=== PATIENT | male | born 1980 | race Caucasian/White ===

== ENCOUNTER 2024-01-09 20:44 | Emergency (ER) | payer OTHER, SELFPAY ==
[2024-01-09 20:49] VITALS: BP 149/104
[2024-01-09 21:15] LABS: % Basophils 0.2 % (0-2); % Eosinophils 1.6 % (0-6); % Immature Granulocytes 0.2 % (0-0.5); % Lymphocytes 17.8 % (20.5-51.1); % Monocytes 6.2 % (1.7-9.3); Absolute Eosinophils 0.2 10^3/uL (0-0.7); Absolute Lymphocytes 1.8 10^3/uL (1.2-3.4); Absolute Monocytes 0.6 10^3/uL (0.1-0.6); Absolute Neutrophils 7.6 10^3/uL (1.4-6.5); Hemoglobin 15.6 g/dL (13.0-18.0); Mean Corp Hgb Conc. 34.7 g/dL (33.0-37.0); Mean Corpuscular Hgb 31.2 pg (27.0-31.0); Mean Platelet Volume 10.4 fL (7.4-10.4); Nucleated Red Blood Cells % 0 % (-); Platelet Count 207 10^3/uL (130-400); White Blood Cell Count 10.3 10^3/uL (4.8-10.8)
[2024-01-09 21:34] LABS: ALT (SGPT) 29 U/L (0-50); AST (SGOT) 29 U/L (17-59); Albumin 4.2 g/dl (3.5-5.0); Alkaline Phosphatase 96 U/L (38-126); Blood Urea Nitrogen 15 mg/dl (9-20); Calcium 9.7 mg/dl (8.4-10.2); Carbon Dioxide 24 mmol/L (22-30); Chloride 106 mmol/L (98-107); Glucose 121 mg/dl (70-99); Potassium 3.8 mmol/L (3.5-5.1); Sodium 139 mmol/L (135-145); Total Bilirubin 0.6 mg/dl (0.2-1.3); Total Protein 6.9 g/dl (6.3-8.2); eGFR > 60.00
[2024-01-09 22:07] VITALS: BMI 32.5
[2024-01-09 22:09] VITALS: BP 167/94
[2024-01-09] MEDS: ANCEF 10 IV (22:15)
--- NOTE | 2024-01-09 22:29 | ED.GENMED ---
History of Present Illness
General
Chief Complaint: Skin Problem
Source: patient
Exam Limitations: none
Time Seen by Provider: 01/09/24 21:37
Travel History
Have you had any contact with someone who has COVID-19?: No
Do you have any symptoms of coronavirus? Fever > 100 degrees, chills, cough, shortness of breath, sore throat, loss of taste or smell, muscle aches, or headache?: No
History of Present Illness
History of Present Illness:
Patient fell a 60-day or pain between his third and fourth toe 3 nights ago. This was followed by intense itching. However today he noted swelling and redness. Saw his primary care who started Keflex. However his became concerned of a
cellulitis and asked him to come in for evaluation. He denies other complaints except for local pain and swelling
Past History
Past History
ED Past Medical History: None
ED Past Surgical History: None
Patient has exhibited threatening behavior?: No
PSI?: No
Social History
Tobacco: Non-smoker
Review of Systems
Review of Systems
All Other Systems: Not applicable
Constitutional: Denies fever or chills
Phy Exam
Physical Exam
Physical Exam:
General: Nontoxic appearing in no distress
Skin: Warm and dry, no rash
Neuro: Alert, nontoxic, grossly nonfocal
Psychiatric: Good eye contact and appropriate
Musculoskeletal: Area of more purplish ecchymosis between the third and fourth toe but does not extend to the tip of the toe. Good capillary refill. Areas marked. No surrounding erythema cellulitis warmth or lymphangitis to the dorsal foot. No
foreign body. No bony tenderness.
Course
Orders/Labs/Results
Orders:
Orders
01/09/24 21:08
Complete Blood Count/With Diff Urgent
Comprehensive Metabolic Panel Urgent
01/09/24 22:10
CeFAZolin 2 GRAM [Ancef] 2 grams in 10 ml IV NOW
Abnormal Lab Results
01/09/24
21:08
MCH 31.2 H pg
(27.0-31.0)
Absolute Neuts (auto) 7.6 H 10^3/uL
(1.4-6.5)
Lymphocytes % 17.8 L %
(20.5-51.1)
Glucose 121 H mg/dl
(70-99)
01/09/24 21:08
01/09/24 21:08
Vital Signs
Initial and Last Documented VS:
Initial Vital Signs
Temp Pulse Resp BP Pulse Ox
98.7 F 106 20 149/104 98
01/09/24 20:49 01/09/24 20:49 01/09/24 20:49 01/09/24 20:49 01/09/24 20:49
Last Documented Vital Signs
Temp Pulse Resp BP Pulse Ox
98.7 F 106 20 167/94 96
01/09/24 20:49 01/09/24 20:49 01/09/24 20:49 01/09/24 22:09 01/09/24 22:09
*Critical Care Note
Total Time (30-74mins, 75-104mins- exclusive of procedures): Not Applicable
Update Note
Update Note:
Area marked appears more ecchymotic than cellulitic. However underlying this there could be a slight cellulitic component. Therefore we will give an IV dose of antibiotics and close follow-up.
ED Attending Note
-
Portions of this chart may have been created with voice recognition software.� Occasional wrong word or��sound alike� substitutions may have occurred due to the inherent limitations of voice recognition software.
Discharge Plan
Departure
Patient Disposition: Home (Routine Discharge)
Date of Disposition: 01/09/24
Time of Disposition: 22:27
Patient with high blood pressure during this ER visit?: Yes
Discharge Problem:
Left foot rash, Cellulitis versus insect bite
Instructions: Skin Rash (DC), Cellulitis (Skin Infection), Adult (DC), BLOOD PRESSURE
Prescriptions:
No Action
acetaminophen 325 MG tablet
650 mg PO Q4HPRN PRN (Reason: mild pain) Qty: 1 0RF
polyethylene glycol 3350 17 GRAMS powder in packet
17 grams PO DAILYPRN PRN (Reason: constipation) Qty: 1 0RF
ibuprofen 200 MG tablet
400 - 600 mg PO Q6HPRN PRN (Reason: moderate pain) Qty: 1 0RF
oxycodone 5 MG tablet
5 - 10 mg PO Q4HPRN PRN (Reason: breakthrough/severe pain) Qty: 25 0RF
oxycodone-acetaminophen 5-325 mg tablet
1 tab PO Q8H PRN (Reason: pain) Qty: 10 0RF
Referrals:
Lacy Kumar NP [Family Provider] -
Activity Restrictions/Additional Instructions:
Continue Keflex
As we discussed, I am here tomorrow night starting at 7 PM and would be happy to recheck it. If you do come back, do not sign in as we discussed
Close follow-up with your primary physician return immediately with increased or spreading redness swelling fever chills or any other concerning symptoms
Interventions
Interventions:
*Risk Screen - Suicide Last Done: 01/09/24 20:49
*General Assessment Last Done: 01/09/24 20:49
*Neglect/Abuse Screening Last Done: 01/09/24 20:49
ED- Fall Risk Assessment Last Done: 01/09/24 20:49
*ED COVID-19 Vaccine History Last Done: 01/09/24 20:49
*Nursing Disposition Last Done: 01/09/24 22:43
ED-Skin Assessment Last Done: 01/09/24 22:09
Discharge Date and Time
Print Language: HEBREW
== END 2024-01-09 22:44 | disposition home or self-care (01) ==
LOC: EMR 20:44
PROVIDERS: EMERGENCY PHYSICIAN Emergency Medicine; FAMILY PHYSICIAN Internal Medicine
DX: R21 Rash and other nonspecific skin eruption (principal); R03.0 Elevated blood-pressure reading, without diagnosis of hypertension
CPT/HCPCS: 99284; 96374; 80053; 85025

== ENCOUNTER 2024-01-10 20:25 | Inpatient (IN) | payer OTHER, SELFPAY ==
[2024-01-10 19:15] VITALS: BP 153/91
--- NOTE | 2024-01-10 19:18 | ED.GENMED ---
History of Present Illness
General
Chief Complaint: Skin Problem
Source: patient
Exam Limitations: none
Time Seen by Provider: 01/10/24 19:15
History of Present Illness
History of Present Illness:
Patient returns for reevaluation. Feels it is somewhat worse. Increased pain increased swelling. Some low-grade fever.
Past History
Past History
ED Past Medical History: None
ED Past Surgical History: None
Patient has exhibited threatening behavior?: No
PSI?: No
Social History
Tobacco: Non-smoker
Review of Systems
Review of Systems
All Other Systems: Not applicable
Constitutional: Reports fever
Phy Exam
Physical Exam
Physical Exam:
GENERAL: Alert and oriented in no apparent distress
CARDIAC: Regular rate and rhythm
LUNGS: No respiratory distress
NEUROLOGICAL: Alert and oriented , grossly non-focal
SKIN: Warm and dry, increased ecchymosis and some erythema extending to the dorsal foot with increased swelling. Blister appearance to the dorsal toe.
MUSCULOSKELETAL: Mild swelling of the dorsal left foot with swelling of the left fourth toe
PSYCH: Normal and appropriate interaction.
Course
Orders/Labs/Results
Orders:
Orders
01/10/24 Lunch
Regular
At Your Request: Full Participation
01/10/24 19:16
IV Insert/Care/Rem.- Treatment PRN
Piperacillin/Tazo 4.5 Gram [Zosyn] 4.5 gram in 100 ml IV NOW
01/10/24 19:20
0.9% Sodium Chloride 1000 ml [Nss] 1,000 ml IV BOLUS
01/10/24 19:24
Acetaminophen [Tylenol] 1,000 mg PO NOW STA
01/10/24 19:33
Basic Metabolic Panel Urgent
Complete Blood Count/With Diff Urgent
Blood Culture Q30M
MELISSA Source: Blood/Venous
Specimen Description:
Wound Culture [Wound/Abscess/Other Culture] Urgent
MELISSA Source: Skin Surface
Specimen Description:
Date Specimen was Collected: 01/10/24
Time Specimen was Collected: 19:20
01/10/24 19:37
Lactate Level [Lactic Acid] Q4H
01/10/24 19:39
Admit/Transfer Patient As Directed
Co-Sign Provider:
Level of Care: Inpatient admission
Assign to:: Medical/Surgical
Physician / Group: Hayden ramachandran
Diagnosis: L foot cellulitis
Reason for Hospitalization: L foot cellulitis - IV Abx
Expected length of stay greater than two midnights?: Yes
ELOS- Estimated Length of Stay in days: 2
I certify the patient meets the requirements for IP care: Yes
01/10/24 19:40
Code Status As Directed
Resuscitation Status: Full Code
01/10/24 19:55
Blood Culture Q30M
MELISSA Source: Blood/Venous
Specimen Description:
01/10/24 19:56
0.9% Sodium Chloride 1000 ml [Nss] 1,500 ml IV NOW STA
01/10/24 20:04
Vancomycin [Vancocin] 2,000 mg 0.9% Sodium Chloride 500 ml [Nss] 500 ml IV NOW
01/10/24 20:10
Foot, Left 3 View [CR Foot - Left Min 3 Views] Urgent
Comment:
Reason For Exam: evaluate for fb
01/10/24 21:04
Acetaminophen [Tylenol] 650 mg PO Q4HPRN PRN
Bisacodyl [Dulcolax] 10 mg RECTAL [id number] PRN
Docusate W/Senna [Senokot-S] 1 tablet PO BIDPRN PRN
Heparin 5,000 units SC Q12
Nicotine [Nicoderm Transdermal] 14 mg TRANSDERM DAILY
Ondansetron Injectable [Zofran] 4 mg IV Q6HPRN PRN
Polyethylene Glycol Powder [Miralax] 17 grams PO DAILYPRN PRN
VANCOMYCIN Pharmacy to Dose [VANCOCIN Pharmacy to Dose] 1 each Pharmacy To Prepare [Call Pharmacy To Prepare] 0 ml IV PER PROTOCOL
01/10/24 21:04
Activity As Directed
Activity Level: As Tolerated
Elevate Extremity As Directed
Extremity:: Left foot
Elevate with:: pillows
Frequency: At all times
Vital Signs As Directed
Frequency: Per unit guidelines
DX Deep Vein Thrombosis Video Routine
01/10/24 21:38
MRSA Screen Routine
MELISSA Source: Nose
Specimen Description:
01/10/24 23:45
Lactate Level [Lactic Acid] Q4H
01/11/24 02:00
CeFAZolin 1 GRAM [Ancef] 1 gram in 5 ml IV Q8H
01/11/24 06:00
Basic Metabolic Panel IN AM
Complete Blood Count/With Diff IN AM
Abnormal Lab Results
01/10/24 01/10/24
19:33 19:37
MCH 31.3 H pg
(27.0-31.0)
MPV 10.7 H fL
(7.4-10.4)
Absolute Lymphs (auto) 0.9 L 10^3/uL
(1.2-3.4)
Neutrophils % 77.5 H %
(42.2-75.2)
Lymphocytes % 13.8 L %
(20.5-51.1)
Carbon Dioxide 21 L mmol/L
(22-30)
Glucose 148 H mg/dl
(70-99)
Lactic Acid 2.1 H mmol/L
(0.7-2.0)
01/10/24 19:33
01/10/24 19:33
Vital Signs
Initial and Last Documented VS:
Initial Vital Signs
Temp Pulse Resp BP Pulse Ox
100.0 F 135 16 153/91 97
01/10/24 19:15 01/10/24 19:15 01/10/24 19:15 01/10/24 19:15 01/10/24 19:15
Last Documented Vital Signs
Temp Pulse Resp BP Pulse Ox
98.7 F 87 18 135/75 97
01/10/24 23:46 01/10/24 23:46 01/10/24 23:46 01/10/24 23:46 01/10/24 23:46
*Critical Care Note
Total Time (30-74mins, 75-104mins- exclusive of procedures): Not Applicable
Update Note
Update Note:
Some progression of symptoms with now blistering noted. I will unroofed this sent for culture. Patient warrants inpatient IV antibiotics. Discussed with patient
Area was sterilely unroofed. Fluid is clear. Indurated tissue. Culture sent.
ED Attending Note
-
Portions of this chart may have been created with voice recognition software.� Occasional wrong word or��sound alike� substitutions may have occurred due to the inherent limitations of voice recognition software.
Discharge Plan
Departure
Patient Disposition: Admit
Date of Disposition: 01/10/24
Time of Disposition: 19:32
Presentation/result/management discussed w/ accepting MD/DO: Hospitalist
Discharge Problem:
Cellulitis left foot
Interventions
Interventions:
*Risk Screen - Suicide Last Done: 01/10/24 19:31
*General Assessment Last Done: 01/10/24 19:31
*Neglect/Abuse Screening Last Done: 01/10/24 19:31
*Nursing Disposition Last Done: 01/10/24 20:57
ED-Skin Assessment Last Done: 01/10/24 19:31
Discharge Date and Time
Discharge Date/Time: 01/10/24 20:58
[2024-01-10 19:31] VITALS: BMI 33.1
--- NOTE | 2024-01-10 19:32 | HPS.HSE ---
Family Physician
-
Family Physician:
Chief Complaint
-
skin problem
History of Present Illness
43 y/o M, no prior PMH, presents to ER with L foot swelling/redness. Patient reports 2 days ago a severe itch between his 3rd and 4th toes. He scatched and noticed a bit of redness. Yesterday he started to note some bruising like dark appearance
which progressed throughout the day. He ailyn a marker around the area and presented to the ED. He was diagnosed with cellulitis and given Ancef, then Keflex for home. Today he reports that the area is more painful and also the bruising is spreading
past the borders. Additionally he noted swelling/redness of the forefoot dorsally. Also with mild temp this evening in ER.
in ER, his lesion was lanced at bedside, clear drainage and cultured.
Patient being admitted for progressive cellulitis.
Medical History
Past Medical History
Past Medical History: Reports None
Past Surgical History: Reports None
Social History
Tobacco: Smoker
Alcohol: Occasional
Drug: None
Personal:
Living: With Family
Employment: Employed
Family History
Family History: Not pertinent
Allergies / Home Medications
Allergies reflects when Allergies were last updated in [facility].
Home Medications with original date entered in [facility]
Allergy/Medication List:
Allergies
Allergy/AdvReac Type Severity Reaction Status Date / Time
No Known Allergies Allergy Unverified 01/10/24 19:20
Home Medications
cephalexin 500 mg tablet 500 mg PO QID 01/10/24
famotidine 20 mg tablet (Pepcid) 20 mg PO DAILY PRN heartburn/indigestion 01/10/24
naproxen sodium 220 mg tablet (Aleve) 440 mg PO BID PRN fever/swelling 01/10/24
Review of Systems
-
A 12 point ROS was completed and negative except as noted: Yes
Physical Exam
Vital Signs
Vital Signs
Temp Pulse Resp BP Pulse Ox
100.0 F 135 16 153/91 97
01/10/24 19:15 01/10/24 19:15 01/10/24 19:15 01/10/24 19:15 01/10/24 19:15
Physical Exam
General: No Apparent Distress
HEENT: NormoCephalic and Anicteric
Respiratory: Clear; No Wheezes or Rales
Cardiac: S1/S2 and Regular Rhythm
Musculoskeletal: Other (L foot, 3/4 toe interspace and toes with bruising, underlying erythema. clear drainage. L dorsal foot erythema/edema)
Neuro: AO x 3
Hematologic/Lymphatic: No Lymphadenopathy
Psych: Calm
Impression/Plan
-
Assessment:
L Foot cellulitis
- with 1st episode being itching, this could be a bug/spider bite with secondary cellulitis/bruising
- s/p lancing in ER, clear fluid expressed
- follow blood and wound cultures
- continue Vancomycin, add Ancef
- elevate L Foot to help edema
Chronic smoker (3-5 cigs/daily)
- Nicotine patch
DVT ppx: SC heparin
Code: Full
[2024-01-10 19:43] LABS: % Basophils 0.3 % (0-2); % Eosinophils 0.9 % (0-6); % Immature Granulocytes 0.3 % (0-0.5); % Lymphocytes 13.8 % (20.5-51.1); % Monocytes 7.2 % (1.7-9.3); % Neutrophils 77.5 % (42.2-75.2); Absolute Eosinophils 0.1 10^3/uL (0-0.7); Absolute Lymphocytes 0.9 10^3/uL (1.2-3.4); Absolute Monocytes 0.5 10^3/uL (0.1-0.6); Hematocrit 43.2 % (39.0-52.0); Hemoglobin 15.6 g/dL (13.0-18.0); Mean Corp Hgb Conc. 36.1 g/dL (33.0-37.0); Mean Corpuscular Hgb 31.3 pg (27.0-31.0); Mean Corpuscular Volume 86.7 fL (80.0-94.0); Mean Platelet Volume 10.7 fL (7.4-10.4); Nucleated Red Blood Cells % 0 % (-); Platelet Count 198 10^3/uL (130-400); Red Blood Cell Count 4.98 10^6/uL (4.70-6.10); White Blood Cell Count 6.4 10^3/uL (4.8-10.8)
[2024-01-10] MEDS: TYLENOL 1000 MG PO (19:47)
[2024-01-10 19:53] LABS: Lactic Acid 2.1 mmol/L (0.7-2.0)
[2024-01-10] MEDS: ZOSYN 100 IV (19:57)
[2024-01-10] MEDS: NSS 1500 ML IV (20:01)
[2024-01-10 20:02] LABS: Blood Urea Nitrogen 13 mg/dl (9-20); Calcium 9.5 mg/dl (8.4-10.2); Carbon Dioxide 21 mmol/L (22-30); Chloride 104 mmol/L (98-107); Estimated Creatinine Clearance > 125 ml/min; Glucose 148 mg/dl (70-99); Potassium 3.9 mmol/L (3.5-5.1); Sodium 136 mmol/L (135-145); eGFR > 60.00
[2024-01-10] MEDS: VANCOCIN 540 MG IV (20:36)
[2024-01-10 21:15] VITALS: BP 140/83; BMI 33.2
[2024-01-10 23:46] VITALS: BP 135/75
[2024-01-11 00:42] LABS: Lactic Acid 1.2 mmol/L (0.7-2.0)
[2024-01-11] MEDS: ANCEF 5 IV ×2 (02:26→09:31)
[2024-01-11 05:41] LABS: % Immature Granulocytes 0.2 % (0-0.5); % Lymphocytes 19.8 % (20.5-51.1); % Monocytes 9.4 % (1.7-9.3); % Neutrophils 68.6 % (42.2-75.2); Absolute Eosinophils 0.1 10^3/uL (0-0.7); Absolute Lymphocytes 0.8 10^3/uL (1.2-3.4); Absolute Monocytes 0.4 10^3/uL (0.1-0.6); Absolute Neutrophils 2.8 10^3/uL (1.4-6.5); Hematocrit 43.6 % (39.0-52.0); Hemoglobin 14.5 g/dL (13.0-18.0); Mean Corp Hgb Conc. 33.3 g/dL (33.0-37.0); Mean Corpuscular Hgb 30.5 pg (27.0-31.0); Mean Corpuscular Volume 91.6 fL (80.0-94.0); Mean Platelet Volume 10.5 fL (7.4-10.4); Nucleated Red Blood Cells % 0 % (-); Platelet Count 164 10^3/uL (130-400); Red Blood Cell Count 4.76 10^6/uL (4.70-6.10); Red Cell Dist. Width 12.8 % (11.5-14.5); White Blood Cell Count 4.1 10^3/uL (4.8-10.8)
[2024-01-11 06:29] LABS: Blood Urea Nitrogen 10 mg/dl (9-20); Calcium 8.8 mg/dl (8.4-10.2); Carbon Dioxide 24 mmol/L (22-30); Chloride 110 mmol/L (98-107); Estimated Creatinine Clearance > 125 ml/min; Glucose 105 mg/dl (70-99); Potassium 4.7 mmol/L (3.5-5.1); Sodium 138 mmol/L (135-145); eGFR > 60.00
[2024-01-11 07:40] VITALS: BP 121/95
--- NOTE | 2024-01-11 08:06 | PHA.VAN.IN ---
Assessment
- Assessment
Renal Function: Appears similar to baseline
Concomitant Antimicrobials: cefazolin
AUC Dosing Plan
- Dosing Variables
Dosing Weight (kg): 117
Dosing CrCl (ml/min): 125
Vd coefficient (L/kg): 0.7
- Empiric Dosing
Initial / Loading Dose: 2000mg - 01/09 20:36
Maintenance Regimen: Vanc 1750mg Q12H - first dose now then 1800
Estimated AUC (mcg*h/mL): 438
Estimated Peak (mcg*h/mL): 29.4
Estimated Trough (mcg/ml): 10
Estimated Half Life (H): 6.4
- Monitoring
No levels ordered at this time: consider levels in next few days
Pharmacokinetics Vancomycin I
- -
Patient Age: 43
Patient Sex: Male
Vancomycin Day #: 1
Indication: Skin And Soft Tissue
Requesting Provider: Dr. Monte
Pertinent Antimicrobial Allergies:
NKDA
Height / Weight:
Height 6 ft 2 in
Actual Weight 117.254 kg
Pertinent Past Medical History: BMI ~33
- Vital Signs / Lab Results
Temp Pulse Resp BP Pulse Ox
97.6 F 72 17 121/95 96
01/11/24 07:40 01/11/24 07:40 01/11/24 07:40 01/11/24 07:40 01/11/24 07:40
Lab Results - Hematology
01/10/24 01/11/24
19:33 05:14
WBC 6.4 4.1 L
Lab Results - Chemistry
01/10/24 01/11/24
19:33 05:14
BUN 13 10
Creatinine 0.9 0.8
Estimated Creat Clear > 125 > 125
01/10/24 01/11/24
19:37 00:18
Lactic Acid 2.1 H 1.2
Microbiology Results
01/10/24 19:33 Gram Stain - Preliminary
Skin Surface
[2024-01-11] MEDS: VANCOCIN 535 MG IV ×2 (09:31→18:25)
--- NOTE | 2024-01-11 10:42 | CM ---
Met with pt and his at bedside
Pt lives in a 2 story home with his and 3 children
Self-employed, independent, driving
DME - crutches
SNF/HH - denies past hx. Has had outpatient PT in past
Has ride at d/c
PCP - Dr Bryanna Wellington
CM will follow for needs at d/c
Plan - anticipate home no needs
--- NOTE | 2024-01-11 12:22 | W.PN.HOSP.TC ---
Today's Communication/Plan
-
IV abx
ID eval
wound care
await culture data
mrsa pending
Assessment / Plan
Assessment / Plan
L Foot cellulitis
Lactic acidosis resolved with IVF
- with 1st episode being itching, this could be a bug/spider bite with secondary cellulitis/bruising
- s/p lancing in ER, clear fluid expressed
- follow blood and wound cultures
- continue Vancomycin, add Ancef
- elevate L Foot to help edema
- Wound care and ID eval
Chronic smoker (3-5 cigs/daily)
- Nicotine patch
DVT ppx: SC lovenox
Code: Full
Anticipated Discharge: 24 - 48 hours
Subjective/Interval History
-
Date of Service: January 11, 2024
States of left foot/toe pain upon removal of dressing
States mild worsening of erythema as it has passed marker site
states of left foot swelling
Objective Data
-
Labs:
Laboratory Results
01/11/24
05:14
WBC 4.1 L
Hgb 14.5
Hct 43.6
Plt Count 164
Sodium 138
Potassium 4.7
Chloride 110 H
Carbon Dioxide 24
BUN 10
Creatinine 0.8
Glucose 105 H
Calcium 8.8
Vital Signs:
Vital Signs
Temp Pulse Resp BP Pulse Ox
97.6 F 72 17 121/95 96
01/11/24 07:40 01/11/24 07:40 01/11/24 07:40 01/11/24 07:40 01/11/24 07:40
I&O
01/10/24 01/11/24 01/12/24
06:59 06:59 06:59
Intake Total 480 / 480
Balance 480 / 480
Physical Exam
-
General: Well Developed and No Apparent Distress
HEENT: Normocephalic, Atraumatic and Moist Mucous Membranes
Respiratory: Clear to Auscultation
Cardiac: Regular Rhythm and S1/S2; Negative Murmur, Rub or Gallop
GI: Soft, Nontender, Nondistended and Normal Bowel Sounds; Negative Organomegaly
Rectal: Deferred by Provider
Musculoskeletal: No Clubbing, No Cyanosis and No Edema
Skin: Rash (Left 4/5 toes with erythema. no zonia pus noted from mild open skin wound. Left foot swelling. )
Neuro: Awake, AO x 3, No Motor Deficits and Nonfocal/Grossly Intact
Psych: Calm
--- NOTE | 2024-01-11 13:37 | WOUNDNOTE ---
LEFT 4th TOE/ Foot
--- NOTE | 2024-01-11 13:47 | WOUNDNOTE ---
[facility] RN note: Patient admitted with Left foot cellulitis
See H&P for complete history.
PMH:
Wound Location and type/assessment: Patient admitted with left foot cellulitis, possibly related to insect bite. The cellulitic area is ecchymotic with open area on 4th toe. Minimal drainage. Patient reports tenderness with ambulation. Heels and
sacrum intact.
Appetite: Good
Pressure redistribution devices in place: Versa Care with Accumax. Patient turns, ambulates without assistance.
Plan: Xeroform and clean dry dressing applied. Patient given instructions for home self care. [facility] phone number added to discharge in the case patient wants to follow up if wound worsens or changes. Will confirm orders with hospitalist and update
nurse.
Updated care plan and will follow as needed.
--- NOTE | 2024-01-11 14:20 | CON.ID ---
Consultation
-
Date/Time Consultation Requested: 03/12/2024 08:53
Date/Time Consultation Performed: 03/12/2024 1350
Requesting Provider: Dr. Yeboah
Performing Provider: Dr. Muniz
Reason for Consultation: Left fourth toe infection
Chief Complaint / Past History
History of Present Illness
Ruddy Fink is a 43-year-old man being evaluated at the request of Dr. Yeboah in regards to a left fourth toe infection. History is obtained from chart review, along with patient interview.
The patient reports that 5 days ago he was out with his family to eat and then they had ice cream later in the evening. He reports that while standing in line his left foot became pruritic and he scratched it. He recalls that it seemed to require
a little bit more than the usual scratch to relieve the pruritus. The next day he played golf and was outside the pool and his foot was fine. 3 days ago the area became again pruritic and began to have some swelling. 2 days ago the area became
more red. He saw his PCP and was prescribed Keflex. He was advised that if there was any worsening of the area to come to the ER. He noted that there was some increase in the erythema and he came in. Here he received antibiotics and was
discharged. He was advised that if there is any worsening to come back, and yesterday he noted the area turned darker red, and to some degree purpleish and he presented back to the ER and was admitted. Thus far, he has received cefazolin and
vancomycin. He did also receive a dose of Zosyn.
At this time he notes ongoing discomfort in the base of the fourth toe. It is tender to touch. The area of purple/red has not progressed, though, for the past 24 hours or so. He does recall that he had some prior fevers, but denies any chills.
He notes no fresh water, brackish water or salt water exposure. No history of prior trauma to the area.
Past History
Past Medical History: None
Additional Past Surgical History:
Hernia
Right knee surgery
Allergy History:
No Known Allergies Allergy (Unverified 01/10/24 19:20)
Medications Reviewed: Yes
Current Antibiotics:
Cefazolin and vancomycin
Social History
Tobacco: Non-Smoker
Alcohol: Occasional
Personal:
Living: With Family
Employment: Employed
Family History
Family History: Not Pertinent
Review of Systems
Vital Signs
Temp Pulse Resp BP Pulse Ox
97.6 F 72 17 121/95 96
01/11/24 07:40 01/11/24 07:40 01/11/24 07:40 01/11/24 07:40 01/11/24 07:40
Physical Exam
Physical Exam
Constitutional: No Acute Distress, Comfortable and Non-toxic
Eyes: Pupils Equal, Pupils Round, No Conjunctival Hemorrhage and Sclera Anicteric
Oral: No Thrush and No Ulcers
Cardiovascular: S1/S2; Negative S3/S4
Pulmonary: Clear, Symmetric and Non Labored; Negative Wheezes, Rales or Rhonchi
Gastrointestinal: Soft, Non Tender, Non Distended, Normal Bowel Sounds, No Rebound and No Guarding
Extremities: Edema, Erythema and Other (Right fourth toe with edema and reddish-purple coloration. Area of sharp demarcation approximately 1 cm onto foot.)
Skin: Warm and Dry
Neurological: Awake and Alert
Psychological: Calm
.
Lab / Diagnostic Study Results
01/11/24 05:14
01/11/24 05:14
Abs Immat Gran (auto) 0.0 10^3/uL (0-0.05) 01/11/24 05:14
Absolute Neuts (auto) 2.8 10^3/uL (1.4-6.5) 01/11/24 05:14
Absolute Lymphs (auto) 0.8 10^3/uL (1.2-3.4) L 01/11/24 05:14
Absolute Monos (auto) 0.4 10^3/uL (0.1-0.6) 01/11/24 05:14
Absolute Basos (auto) 0.0 10^3/uL (0-0.2) 01/11/24 05:14
Immature Gran % 0.2 % (0-0.5) 01/11/24 05:14
Neutrophils % 68.6 % (42.2-75.2) 01/11/24 05:14
Lymphocytes % 19.8 % (20.5-51.1) L 01/11/24 05:14
Monocytes % 9.4 % (1.7-9.3) H 01/11/24 05:14
Eosinophils % 2.0 % (0-6) 01/11/24 05:14
Basophils % 0.0 % (0-2) 01/11/24 05:14
Lactic Acid 1.2 mmol/L (0.7-2.0) 01/11/24 00:18
Microbiology Results
Micro:
01/10/24 19:33 Wound Culture - Preliminary
Skin Surface No growth
Gram Stain - Preliminary
01/10/24 21:38 MRSA Screen - Pending
Nose
01/10/24 19:55 Blood Culture - Pending
Blood/Venous
01/10/24 19:33 Blood Culture - Pending
Blood/Venous
Assessment / Plan
Left fourth toe infection
Suspected arthropod envenomation
Recommendations:
The sharp line of demarcation on the foot is suggestive of a insect envenomation (?spider ?bee ?other) with suspected concomitant cellulitis.
Continue with empiric antibiotics for the present. Will change back to Zosyn for broader gram-negative coverage. Continue with vancomycin.
Continue lower extremity elevation.
Consider Podiatry evaluation.
Will closely follow. If ongoing swelling and discomfort tomorrow, will consider MRI to assess for any developing collection.
Monitor white count and temperature curve.
Care Review
Plan reviewed with: Physician (Hospitalist)
[2024-01-11] MEDS: ZOSYN 50 IV ×2 (15:52→21:47)
[2024-01-11 16:26] VITALS: BP 133/82
[2024-01-11 23:14] VITALS: BP 133/74
[2024-01-12] MEDS: ZOSYN 50 IV ×2 (03:49→11:36)
[2024-01-12 05:39] LABS: % Basophils 0.7 % (0-2); % Eosinophils 3.8 % (0-6); % Lymphocytes 32.6 % (20.5-51.1); % Monocytes 14.7 % (1.7-9.3); % Neutrophils 48.2 % (42.2-75.2); Absolute Eosinophils 0.2 10^3/uL (0-0.7); Absolute Lymphocytes 1.4 10^3/uL (1.2-3.4); Absolute Monocytes 0.6 10^3/uL (0.1-0.6); Hematocrit 43.4 % (39.0-52.0); Hemoglobin 14.7 g/dL (13.0-18.0); Mean Corp Hgb Conc. 33.9 g/dL (33.0-37.0); Mean Corpuscular Hgb 30.9 pg (27.0-31.0); Mean Corpuscular Volume 91.2 fL (80.0-94.0); Mean Platelet Volume 10.6 fL (7.4-10.4); Nucleated Red Blood Cells % 0 % (-); Platelet Count 167 10^3/uL (130-400); Red Blood Cell Count 4.76 10^6/uL (4.70-6.10); Red Cell Dist. Width 12.8 % (11.5-14.5); White Blood Cell Count 4.2 10^3/uL (4.8-10.8)
[2024-01-12 06:02] LABS: Blood Urea Nitrogen 11 mg/dl (9-20); Calcium 8.7 mg/dl (8.4-10.2); Carbon Dioxide 24 mmol/L (22-30); Chloride 107 mmol/L (98-107); Estimated Creatinine Clearance > 125 ml/min; Glucose 107 mg/dl (70-99); Potassium 4.4 mmol/L (3.5-5.1); Sodium 139 mmol/L (135-145); eGFR > 60.00
[2024-01-12] MEDS: VANCOCIN 535 MG IV (06:03)
--- NOTE | 2024-01-12 06:43 | VATNOTE ---
CALLED TO ASSESS CURRENT IV ACCESS IN RAC. FLUSHED WELL, HAS A GOOD BR, APPEARS WNL AND PT HAS N/C. POSITIONAL DDURING IV ABX ADMINISTRATION. PT DECLINES A NEW IV ACCESS AT THIS TIME. PCN AWARE. VAT TO FOLLOW. ABX INFUSING WELL AT THIS TIME.
--- NOTE | 2024-01-12 07:25 | W.CS.POD ---
Consult Summary - Podiatry
-
Pt seen bedside for pain and swelling of left foot and specifically the 3rd interspace for 5 days . x-ray negative for foreign body, wound culture negative. If no improvement today would agree with ordering MRI to rule out a deep abscess. He
does not feel much relief from pain with the IV abx however the swelling is down. Agree it is most likely insect bite.
I would consider steroids to reduce inflammation. Will follow Consult dictated
[2024-01-12 07:36] VITALS: BP 139/85
--- NOTE | 2024-01-12 10:27 | PHA.VAN.FU ---
Vancomycin Assessment / Plan
- Assessment
Renal Function: Stable
WBC's are: Stable
In the past 24 hrs, patient has been: Afebrile
Concomitant Antimicrobials: piperacillin/tazobactam
- Dosing Plan
Continue: Vanc 1750mg Q12H
- Monitoring Plan
No level(s) ordered at this time: consider in next few days
- Follow Up
Pharmacy will continue to follow.
Vancomycin Follow UP
- -
Patient Age: 43
Patient Sex: Male
Vancomycin Day #: 2
Indication: Skin And Soft Tissue
Requesting Provider: Dr. Monte / Cristy
Pertinent Antimicrobial Allergies:
NKDA
Height / Weight:
Height 6 ft 2 in
Actual Weight 117.254 kg
Pertinent Past Medical History: BMI ~33
- Vital Signs / Lab Results
Temp Pulse Resp BP Pulse Ox
98.1 F 67 17 139/85 97
01/12/24 07:36 01/12/24 07:36 01/12/24 07:36 01/12/24 07:36 01/12/24 07:36
Lab Results - Hematology
01/10/24 01/11/24 01/12/24
19:33 05:14 05:17
WBC 6.4 4.1 L 4.2 L
Lab Results - Chemistry
01/10/24 01/11/24 01/12/24
19:33 05:14 05:17
BUN 13 10 11
Creatinine 0.9 0.8 0.9
Estimated Creat Clear > 125 > 125 > 125
01/10/24 01/11/24
19:37 00:18
Lactic Acid 2.1 H 1.2
Microbiology Results
01/10/24 21:38 MRSA Screen - Preliminary
Nose Culture in Progress
01/10/24 19:55 Blood Culture - Preliminary
Blood/Venous No Growth in 24 hours- Final report to follow
01/10/24 19:33 Blood Culture - Preliminary
Blood/Venous No Growth in 24 hours- Final report to follow
01/10/24 19:33 Wound Culture - Preliminary
Skin Surface No growth
Gram Stain - Preliminary
--- NOTE | 2024-01-12 10:46 | W.PN.HOSP.TC ---
Addendum entered and electronically signed by Mir Yeboah MD 01/12/24 15:09:
MRI negative for acute osteomyelitis/abscess/tenosynovitis. Discussed with infectious disease. Patient wants to go home. Okay for discharge with p.o. Doxy for 7 days. Discussed with patient who verbalized understanding and need to follow-up as
outpatient with podiatry.
More than 30 minutes spent in discharge including
Final examination of the patient
Summarizing hospital stay
Instructions for continuing care to all relevant caregivers
Preparation of discharge records, prescriptions, and referral forms
Total time spent (in minutes): 45
Original Note:
Today's Communication/Plan
-
IV broad spectrum abx
update Tdap
ID recs
Elevated LLE
Assessment / Plan
Assessment / Plan
L Foot cellulitis
Lactic acidosis resolved with IVF
- with 1st episode being itching, this could be a bug/spider bite with secondary cellulitis/bruising
- s/p lancing in ER, clear fluid expressed
- Blood cultures negative for growth x 24 hours. Wound culture with no growth.
- continue Vancomycin,and zosyn
- elevate L Foot to help edema
- Wound care and ID eval
- Pt does not remember last Tetanus shot. Will order
- If no improvement LLE MRI
- Podiatry consultation
Chronic smoker (3-5 cigs/daily)
- Nicotine patch
DVT ppx: SC lovenox
Code: Full
Anticipated Discharge: > 48 hours
Subjective/Interval History
-
Date of Service: January 12, 2024
States some mild improvement in swelling and Erythema
Objective Data
-
Labs:
Laboratory Results
01/12/24
05:17
WBC 4.2 L
Hgb 14.7
Hct 43.4
Plt Count 167
Sodium 139
Potassium 4.4
Chloride 107
Carbon Dioxide 24
BUN 11
Creatinine 0.9
Glucose 107 H
Calcium 8.7
Vital Signs:
Vital Signs
Temp Pulse Resp BP Pulse Ox
98.1 F 67 17 139/85 97
01/12/24 07:36 01/12/24 07:36 01/12/24 07:36 01/12/24 07:36 01/12/24 07:36
I&O
01/11/24 01/12/24 01/13/24
06:59 06:59 06:59
Intake Total 480 / 480 660 / 660
Balance 480 / 480 660 / 660
Physical Exam
-
General: Well Developed and No Apparent Distress
HEENT: Normocephalic, Atraumatic and Moist Mucous Membranes
Respiratory: Clear to Auscultation
Cardiac: Regular Rhythm and S1/S2; Negative Murmur, Rub or Gallop
GI: Soft, Nontender, Nondistended and Normal Bowel Sounds; Negative Organomegaly
Rectal: Deferred by Provider
Musculoskeletal: No Clubbing, No Cyanosis and No Edema
Skin: Rash (Left 4th toe with erythema. no zonia pus noted from mild open skin wound. Left foot swelling-improved )
Neuro: Awake, AO x 3, No Motor Deficits and Nonfocal/Grossly Intact
Psych: Calm
[2024-01-12] MEDS: ADACEL 0.5 ML IM (11:37)
--- NOTE | 2024-01-12 12:31 | W.PN.ID1 ---
Date of Service
Date of Service: January 12, 2024
Today's Communication
See below...
Assessment / Plan
Left fourth toe infection
Suspected arthropod envenomation
Recommendations:
The sharp line of demarcation on the foot is suggestive of a insect envenomation (?spider ?bee ?other) with suspected concomitant cellulitis. At present, this area appears stable and without significant twisting frame changer the past 24 hours.
Continue current abx for right now.
Check MRI of area to assure no abscess.
- if no abscess, transition to oral doxycycline.
Will likely need follow-up with Wound Care Center or Podiatry following D/C
����������������������������������������������������������
Chief Complaint
-: Other (right 4th toe cellulitis)
Subjective / Review of Systems
Review of Systems: No Fever and No Chills
Vital Signs / Physical Exam
Vital Signs
Vital Signs
Temp Pulse Resp BP Pulse Ox
98.1 F 67 17 139/85 97
01/12/24 07:36 01/12/24 07:36 01/12/24 07:36 01/12/24 07:36 01/12/24 07:36
Physical Exam
Constitutional: No Acute Distress, Comfortable and Non-toxic
Eyes: Sclera Anicteric
Pulmonary: Non Labored
Skin: Other (right 4th toe area with ongoing, but stable purple discoloration.)
Neurological: Awake and Alert
Psychological: Calm
Objective Data
Lab Data
Lab Results
01/12/24 05:17
01/12/24 05:17
Estimated Creat Clear > 125 ml/min 01/12/24 05:17
Lactic Acid 1.2 mmol/L (0.7-2.0) 01/11/24 00:18
Most recent labs reviewed.
Micro Results:
01/10/24 19:33 Wound Culture - Preliminary
Skin Surface No growth
Gram Stain - Preliminary
01/10/24 21:38 MRSA Screen - Preliminary
Nose Culture in Progress
01/10/24 19:55 Blood Culture - Preliminary
Blood/Venous No Growth in 24 hours- Final report to follow
01/10/24 19:33 Blood Culture - Preliminary
Blood/Venous No Growth in 24 hours- Final report to follow
Care Review
Plan reviewed with: Physician (Hospitalist)
--- NOTE | 2024-01-12 12:39 | W.PN.UPDATE ---
Update Note
Progress Note Update
Left foot
--- NOTE | 2024-01-12 15:04 | W.DCSUMMARY ---
Discharge Summary
Discharge Data
Date of Admission: 01/10/24
Date of Discharge: 01/12/24
-
Pending Results: No
Hospital Course
43 year-old male who is presenting with complaints of left fourth toe worsening swelling and erythema. Patient was outside when he noticed pruritus and he scratched it. Subsequently he was seen in ER and was discharged on p.o. Keflex. Patient
returned back to the hospital as state of worsening of swelling and erythema. Patient was started on broad-spectrum antibiotic vancomycin and Zosyn. Infectious disease was consulted. Patient with improvement in erythema. Wound care was
consulted. Blood cultures were negative. Wound culture was negative. Patient remained afebrile. MRI negative for acute osteomyelitis and for soft tissue abscess and there is no MRI evidence for infectious flexor or extensor tendon tenosynovitis.
Patient was also eval by podiatry. Patient was recommend outpatient follow-up with child guidance counselor or wound care center. Patient will be discharged on p.o. doxycycline per infectious disease recommendation for additional 7 days.
Discharge Plan
-
Patient Disposition: Home (Routine Discharge)
Discharge Diagnosis/Procedures: Left fourth toe infection
Suspected arthropod envenomation
Lactic acidosis
Condition: Fair
Diet: As tolerated
Activity: As tolerated
Driving Restrictions: As prior to admission
Activity Restrictions/Additional Instructions:
Wound Care Instructions Toe Wound- clean with normal saline or soap and water. Apply Xeroform and cover with 2x2, wrap with kerlix. Change daily and PRN for drainage or if loose.
Follow up at wound care center call for an appointment.
Continue to elevate left lower extremity as much as possible.
Referrals:
Lacy Arizmendi DPM [Specified Professional Personl] - in less than 1 week (call to make appt. )
UNKNOWN - PT DOES,NOT KNOW [Family Provider] -
Prescriptions:
New
doxycycline hyclate 100 mg capsule
100 mg PO BID 7 Days Qty: 14 0RF
Continued
famotidine [Pepcid] 20 mg Tablet
20 mg PO DAILY PRN (Reason: heartburn/indigestion)
naproxen sodium [Aleve] 220 mg Tablet
440 mg PO BID PRN (Reason: fever/swelling)
Discontinued
cephalexin 500 mg tablet
500 mg PO QID
Patient Comments:
01/10/2024, filled on 01/09/2024 and instructed to take one tablet QID for 10 days.
Discharge Orders:
Discharge Patient (As Directed); Ordered 01/12/24
Ordered By: Mir Yeboah
Discharge Date and Time
Print Language: [place] K[place]
[2024-01-12 15:45] VITALS: BP 106/66
--- NOTE | 2024-01-12 16:30 | CM ---
Patient discharged to home from hospital before case management could see him
== END 2024-01-12 16:23 | disposition home or self-care (01) | DRG 603 ==
LOC: 3 WEST ACU 20:25
PROVIDERS: ADMITTING PHYSICIAN Internal Medicine; ATTENDING PHYSICIAN Hospitalist; CONSULT PHYSICIAN Internal Medicine Infectious Disease; CONSULT PHYSICIAN Podiatrist; EMERGENCY PHYSICIAN Emergency Medicine
DX: L03.116 Cellulitis of left lower limb (principal); E87.20 Acidosis, unspecified; F17.200 Nicotine dependence, unspecified, uncomplicated; L29.9 Pruritus, unspecified; W57.XXXA Bitten or stung by nonvenomous insect and other nonvenomous arthropods, initial encounter; Y92.9 Unspecified place or not applicable; Y93.9 Activity, unspecified
CPT/HCPCS: 73630; 73723; 80048; 83605; 85025; 87040; 87070; 87147; 87205; 90715; 96361; 96365; 96375; 99284; 99406; A9575

== ENCOUNTER 2025-04-30 06:14 | Day surgery (SDC) | payer BC, SELFPAY | END 2025-04-30 10:54 | disposition home or self-care (01) | LOC: GI 06:14 | PROVIDERS: ATTENDING PHYSICIAN Internal Medicine Gastroenterology | DX: Z12.11 Encounter for screening for malignant neoplasm of colon (principal); K57.30 Diverticulosis of large intestine without perforation or abscess without bleeding; D12.2 Benign neoplasm of ascending colon; K63.5 Polyp of colon; Z80.0 Family history of malignant neoplasm of digestive organs | CPT/HCPCS: 45385; 45380; 88305 ==